=== PATIENT | female | born 1995 | race Caucasian/White ===

== ENCOUNTER → 2017-12-11 | Outpatient (CLI) | payer BC | LOC: COL.RAD 12:40 | DX: S06.0X9A Concussion with loss of consciousness of unspecified duration, initial encounter (principal); W19.XXXA Unspecified fall, initial encounter ==

== ENCOUNTER 2018-07-13 23:05 | Emergency (ER) | payer BC ==
[~2018-07-13] VITALS: Ht 175.3 cm; Wt 81.8 kg
[2018-07-13 23:11] VITALS: TEMP 98.2
[2018-07-13] MEDS ORDERED: KARIVA 28 DAY1 EACH PO (23:14)
[2018-07-14] MEDS ORDERED: NORCO 325 MG-51 TAB PO (00:14)
[2018-07-14 00:44] VITALS: BP 128/64; PULSE 92
== END 2018-07-14 00:44 | disposition home or self-care (01) ==
LOC: COL.ER 23:05
DX: S92.331A Displaced fracture of third metatarsal bone, right foot, initial encounter for closed fracture (principal); W22.8XXA Striking against or struck by other objects, initial encounter; Y92.320 Baseball field as the place of occurrence of the external cause
CPT/HCPCS: Q4045